=== PATIENT | male | born 1950 | race African-American/Black ===

== ENCOUNTER 2016-02-24 18:08 | Inpatient (IN) | payer MEDICAID ==
[~2016-02-24] VITALS: Ht 165.1 cm; Wt 54.0 kg
[2016-02-24] VITALS (7 sets, daily range): BP systolic 86–115; BP diastolic 53–71
[~2016-02-24 18:08] MED LIST: DILANTIN30 MG ORAL
[2016-02-24] MEDS ORDERED: Haloperidol 5mg/ml Inj IM ONE (18:15)
[2016-02-24] MEDS ORDERED: DiphenhydrAMINE 50mg/ml Inj IM ONE (18:15)
[2016-02-24 18:55] LABS: APPEARANCE,URINE CLEAR; KETONES,URINE NEGATIVE (NEGATIVE); LEUKOCYTE ESTERASE ,URINE NEGATIVE (NEGATIVE); NITRITE,URINE NEGATIVE (NEGATIVE); PH,URINE 5 (4.5-8.0); PROTEIN,URINE 2+ (NEGATIVE); UROBILINOGEN,URINE NORMAL MG/DL (0.0-1.0)
[2016-02-24 18:57] LABS: BASOPHILS % (AUTO) 0.5 % (0.0-2.0); EOSINOPHILS % (AUTO) 0.5 % (0.0-3.0); LYMPHOCYTES % (AUTO) 18.9 % (20.0-45.0); MEAN CORPUSCULAR HGB CONC 32.3 G/DL (32.0-36.0); MEAN CORPUSCULAR VOLUME 96 FL (80-99); MEAN PLATELET VOLUME 5.7 FL (6.5-10.1); MONOCYTES % (AUTO) 4.7 % (1.0-10.0); NEUTROPHILS % (AUTO) 75.4 % (45.0-75.0); PLATELET COUNT 232 K/UL (150-450); RED BLOOD COUNT 5.09 M/UL (4.70-6.10); RED CELL DISTRIBUTION WIDTH 11.8 % (11.6-14.8)
[2016-02-24 19:02] LABS: BACTERIA,URINE OCCASIONAL /HPF; RBC,URINE 0-2 /HPF (0 - 0); WBC,URINE 0 /HPF (0 - 0)
[2016-02-24 19:14] LABS: TROPONIN I < 0.30 ng/mL (<=0.30)
[2016-02-24 19:18] LABS: REFLEX LACTIC ACID YES OR NO YES
[2016-02-24 19:21] LABS: ALANINE AMINOTRANSFERASE 20 U/L (3-41); ALBUMIN/GLOBULIN RATIO 1.1 (1.0-2.7); ASPARTATE AMINO TRANSFERASE 30 U/L (5-40); CALCIUM 8.7 mg/dL (8.6-10.2); CARBON DIOXIDE 18 mEQ/L (20-30); CREATININE 0.8 mg/dL (0.7-1.2); GLOMERULAR FILTRATION RATE > 60 mL/min (>60); TOTAL PROTEIN 7.8 g/dL (6.6-8.7)
[2016-02-24 19:22] LABS: ACETAMINOPHEN < 10 ug/mL (10-30); ALCOHOL 210 mg/dL; ANION GAP 23 (5-15); CHLORIDE 100 mEQ/L (98-107); HEMOLYSIS 10; POTASSIUM 4.4 mEQ/L (3.4-4.9); SODIUM 141 mEQ/L (135-145)
[2016-02-24] MEDS ORDERED: metroNIDAZOLE 500mg 100 ML IVPB ONE (19:45)
[2016-02-24] MEDS ORDERED: NS 1000ml 1,900 ML IVLG ONE (19:45)
[2016-02-24] MEDS ORDERED: Zosyn 3.375gm inj ONE (19:47)
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
[2016-02-24] MEDS ORDERED: Vancomycin 1gm inj IVPB ONE (21:17)
[2016-02-24] MEDS ORDERED: D5W 250 ML ONE (21:18)
[2016-02-24] MEDS ORDERED: Dextrose 10%/.45 SOD CHL 1,000 ML IV SCH (22:00)
[2016-02-24] MEDS ORDERED: Phenytoin 250mg/5ml vial ONE (22:09)
[2016-02-24] MEDS ORDERED: NS 100 ML ONE (22:09)
[2016-02-24] MEDS ORDERED: D5 1/2NS 1,000 ML IV SCH (22:15)
[2016-02-24] MEDS ORDERED: TdaP Vaccine 0.5ml Syr IM ONE (22:30)
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
[2016-02-25] MEDS ORDERED: DuoNeb 0.5-3(2.5)mg/3ml neb HHN PRN
[2016-02-25] MEDS ORDERED: Miralax 17gm pkt ORAL PRN
[2016-02-25] MEDS ORDERED: Morphine Sulfate 2mg/ml Inj IVP PRN
[2016-02-25] MEDS ORDERED: Nitroglycerin Subl 0.4mg tab (Bottle Of 25) SL PRN
[2016-02-25 00:12] VITALS: BP 124/63
[2016-02-25] MEDS ORDERED: Cefepime 2gm ONE (01:56)
[2016-02-25] MEDS: D5 1/2NS 1,000 ML IV SCH ×2 (02:11→14:24)
[2016-02-25 04:33] VITALS: BP 121/68
[2016-02-25 06:35] LABS: MEAN CORPUSCULAR HEMOGLOBIN 31.1 PG (27.0-31.0); MEAN CORPUSCULAR HGB CONC 33.3 G/DL (32.0-36.0); MEAN CORPUSCULAR VOLUME 93 FL (80-99); MEAN PLATELET VOLUME 5.3 FL (6.5-10.1); PLATELET COUNT 183 K/UL (150-450); RED BLOOD COUNT 4.45 M/UL (4.70-6.10); RED CELL DISTRIBUTION WIDTH 11.7 % (11.6-14.8); WHITE BLOOD COUNT 12.1 K/UL (4.8-10.8)
[2016-02-25 07:05] LABS: ALANINE AMINOTRANSFERASE 22 U/L (3-41); ALBUMIN/GLOBULIN RATIO 0.9 (1.0-2.7); ANION GAP 13 (5-15); ASPARTATE AMINO TRANSFERASE 45 U/L (5-40); CALCIUM 8.2 mg/dL (8.6-10.2); CARBON DIOXIDE 21 mEQ/L (20-30); CHLORIDE 109 mEQ/L (98-107); CREATININE 0.8 mg/dL (0.7-1.2); GLOMERULAR FILTRATION RATE > 60 mL/min (>60); HEMOLYSIS 2; POTASSIUM 4.1 mEQ/L (3.4-4.9); SODIUM 143 mEQ/L (135-145); TOTAL PROTEIN 6.5 g/dL (6.6-8.7)
--- NOTE | 2016-02-25 07:46 | Consultation ---
Consult Note Consult Note ID CONSULT: Dinora# [id number] Assessment/Plan ASSESSMENT: 65 y/o male with: // Leukocytosis r/o infection vs reactive - afebrile, cultures pending. [place] well prior to event, no localizing s/sx infection - UA benign, CXR, CT head pending // Periodontal disease // Lactic acidosis - improved // Acute encephalopathy, m/l multifactorial r/o septic, CVA, seizure - improved , pt cannot recall events. CT head pending - positive: EtOH, marijuana, CPK - negative: ASA, tylenol - h/o seizures with subtherapeutic dilantin - h/o CVA // Elevated LFTs, mild // EtOH intoxication // NKDA // Full Code PLAN: - continue empiric IV vancomycin, cefepime d# 1 for now pending cultures, imaging. Likely de-escalate soon - f/u cultures - f/u CT head - f/u CXR - monitor CBC, temperatures - monitor BMP - withdrawal, seizure precautions Thanks! Will follow CESIA GREENFIELD Feb 25, 2016 07:46
[2016-02-25 08:20] VITALS: BP 127/67
[2016-02-25 08:39] LABS: BAND NEUTROPHILS % (MANUAL) 2 % (0-8); LYMPHOCYTES % (MANUAL) 5 % (20-45); NEUTROPHILS % (MANUAL) 90 % (45-75); TOTAL CELLS COUNTED 100
[2016-02-25 08:40] LABS: BASOPHILS % (MANUAL) 0 % (0-2); EOSINOPHILS % (MANUAL) 0 % (0-3); HYPOCHROMASIA 1+; PLATELET ESTIMATE ADEQUATE; PLATELET MORPHOLOGY NORMAL
--- NOTE | 2016-02-25 08:53 | Diagnostic Imaging Report ---
Indications: Altered level of consciousness Technique: Spiral acquisitions obtained through the brain. Angled axial and coronal 5 x 5 mm slices were reconstructed. Total dose length product 1376 mGycm. CTDI vol(s) 70 mGy Comparison: None Findings: There is a large area of encephalomalacia involving much of the left parietal lobe, portions of the posterior left frontal lobe and anterior left temporal lobe, and a significant proportion of the left basal ganglia region. There is ex vacuo dilatation of the body and temporal horn of the left lateral ventricle. There is also leftward midline shift which is presumably and extra-axial none. No acute intracranial hemorrhage or edema. No mass effect or midline shift. Otherwise normal summers-white differentiation. There is slight chronic appearing deformity of the nasal bone the visualized orbits and sinuses are unremarkable. 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 Rolle The CT scanner at [facility] is accredited by the [employer] and the scans are performed using protocols designed to limit radiation exposure to as low as reasonably achievable to attain images of sufficient resolution adequate for diagnostic evaluation.
[2016-02-25] MEDS: Heparin 5000 units/ml inj SUBQ SCH ×2 (09:02→20:14)
[2016-02-25 12:18] VITALS: BP 124/63
--- NOTE | 2016-02-25 15:10 | Internal Med Progress Note ---
Subjective Date of Service: Feb 25, 2016 Physician Name CoradoLien spaulding Attending Physician Nasra Duong Current Medications Medications (Trade) Dose Ordered Sig/Chung Route PRN Reason Start Time Stop Time Status Last Admin Dose Admin Acetaminophen (Tylenol) 650 mg Q4H PRN ORAL fever 02/25/16 00:00 03/26/16 00:00 02/25/16 07:02 Albuterol/ Ipratropium 3 ml 3 ml Q4H PRN HHN Shortness of Breath 02/25/16 00:00 03/01/16 00:00 Cefepime HCl 2 gm/ Dextrose 100 ml @ 100 mls/hr Q12H IV 02/25/16 02:00 03/03/16 01:59 02/25/16 14:24 Dextrose/Sodium Chloride (D5 0.45% NS) 1,000 ml @ 75 mls/hr [id number] IV 02/25/16 00:00 03/26/16 00:00 02/25/16 14:24 Heparin Sodium (Porcine) (Heparin 5000 units/ml) 5,000 units EVERY 12 HOURS SUBQ 02/25/16 09:00 03/26/16 08:59 02/25/16 09:02 Morphine Sulfate (Morphine Sulfate) 2 mg Q4H PRN IVP Moderate Pain (Pain Scale 4-6) 02/25/16 00:00 03/03/16 00:00 Nitroglycerin 0.4 mg 0.4 mg Q5M PRN SL Prn Chest Pain 02/25/16 00:00 03/26/16 00:00 Ondansetron HCl (Zofran) 4 mg Q6H PRN IVP Nausea & Vomiting 02/25/16 00:00 03/26/16 00:00 Polyethylene Glycol (Miralax) 17 gm DAILYPRN PRN ORAL Constipation 02/25/16 00:00 03/26/16 00:00 Temazepam (Restoril) 15 mg HSPRN PRN ORAL Insomnia 02/25/16 00:00 03/03/16 00:00 Vancomycin HCl/ Dextrose (Vancomycin/D5W 250ml) 250 ml @ 167 mls/hr Q12H IVPB 02/25/16 09:00 03/01/16 08:59 02/25/16 09:01 Allergies: Coded Allergies: No Known Allergies (Unverified , 05/10/14) ROS Limited/Unobtainable: Yes Subjective Cover for Int Rakesh-Dr Duong Objective Last Vital Signs Date Time Temp Pulse Resp B/P Pulse Ox O2 Delivery O2 Flow Rate FiO2 02/25/16 12:18 97.2 69 20 124/63 97 Room Air General Appearance: WD/WN, no apparent distress EENT: PERRL/EOMI, normal ENT inspection Neck: non-tender, normal alignment, supple, normal inspection Cardiovascular: normal peripheral pulses, normal rate, regular rhythm, no gallop/murmur, no JVD Respiratory/Chest: chest wall non-tender, lungs clear, normal breath sounds, no respiratory distress, no accessory muscle use Abdomen: normal bowel sounds, non tender, soft, no organomegaly, no mass 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: 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 II-XII grossly normal Skin: normal pigmentation, warm/dry Laboratory Tests Test 02/24/16 18:08 02/24/16 18:22 02/24/16 19:30 02/25/16 05:25 White Blood Count 15.0 K/UL (4.8-10.8) H 12.1 K/UL (4.8-10.8) H Red Blood Count 5.09 M/UL (4.70-6.10) 4.45 M/UL (4.70-6.10) L Hemoglobin 15.8 G/DL (14.2-18.0) 13.8 G/DL (14.2-18.0) L Hematocrit 48.9 % (42.0-52.0) 41.5 % (42.0-52.0) L Mean Corpuscular Volume 96 FL (80-99) 93 FL (80-99) Mean Corpuscular Hemoglobin 31.0 PG (27.0-31.0) 31.1 PG (27.0-31.0) H Mean Corpuscular Hemoglobin Concent 32.3 G/DL (32.0-36.0) 33.3 G/DL (32.0-36.0) Red Cell Distribution Width 11.8 % (11.6-14.8) 11.7 % (11.6-14.8) Platelet Count 232 K/UL (150-450) 183 K/UL (150-450) Mean Platelet Volume 5.7 FL (6.5-10.1) L 5.3 FL (6.5-10.1) L Neutrophils (%) (Auto) 75.4 % (45.0-75.0) H % (45.0-75.0) Lymphocytes (%) (Auto) 18.9 % (20.0-45.0) L % (20.0-45.0) Monocytes (%) (Auto) 4.7 % (1.0-10.0) % (1.0-10.0) Eosinophils (%) (Auto) 0.5 % (0.0-3.0) % (0.0-3.0) Basophils (%) (Auto) 0.5 % (0.0-2.0) % (0.0-2.0) Sodium Level 141 mEQ/L (135-145) 143 mEQ/L (135-145) Potassium Level 4.4 mEQ/L (3.4-4.9) 4.1 mEQ/L (3.4-4.9) Chloride Level 100 mEQ/L (98-107) 109 mEQ/L (98-107) H Carbon Dioxide Level 18 mEQ/L (20-30) L 21 mEQ/L (20-30) Anion Gap 23 (5-15) H 13 (5-15) Blood Urea Nitrogen 10 mg/dL (7-23) 10 mg/dL (7-23) Creatinine 0.8 mg/dL (0.7-1.2) 0.8 mg/dL (0.7-1.2) Estimat Glomerular Filtration Rate > 60 mL/min (>60) > 60 mL/min (>60) Glucose Level 179 mg/dL (74-106) H 84 mg/dL (74-106) Lactic Acid Level 6.70 mmol/L (0.66-2.22) H 3.70 mmol/L (0.66-2.22) H Calcium Level 8.7 mg/dL (8.6-10.2) 8.2 mg/dL (8.6-10.2) L Total Bilirubin < 0.2 mg/dL (0.0-1.2) 0.4 mg/dL (0.0-1.2) Aspartate Amino Transf (AST/SGOT) 30 U/L (5-40) 45 U/L (5-40) H Alanine Aminotransferase (ALT/SGPT) 20 U/L (3-41) 22 U/L (3-41) Alkaline Phosphatase 162 U/L (40-129) H 141 U/L (40-129) H Ammonia 56 umol/L (16-60) Total Creatine Kinase 264 U/L (38-174) H Troponin I < 0.30 ng/mL (<=0.30) Total Protein 7.8 g/dL (6.6-8.7) 6.5 g/dL (6.6-8.7) L Albumin 4.2 g/dL (3.5-5.2) 3.2 g/dL (3.5-5.2) L Globulin 3.6 g/dL 3.3 g/dL Albumin/Globulin Ratio 1.1 (1.0-2.7) 0.9 (1.0-2.7) L Salicylates Level < 1 mg/dL (10-30) L Acetaminophen Level < 10 ug/mL (10-30) L Phenytoin (Dilantin) Level 4.2 ug/mL (10-20) L Serum Alcohol 210 mg/dL Urine Color Pale yellow Urine Appearance Clear Urine pH 5 (4.5-8.0) Urine Specific [place] 1.010 (1.005-1.035) Urine Protein 2+ (NEGATIVE) H Urine Glucose (UA) 3+ (NEGATIVE) H Urine Ketones Negative (NEGATIVE) Urine Occult Blood 4+ (NEGATIVE) H Urine Nitrite Negative (NEGATIVE) Urine Bilirubin Negative (NEGATIVE) Urine Urobilinogen Normal MG/DL (0.0-1.0) Urine Leukocyte Esterase Negative (NEGATIVE) Urine RBC 0-2 /HPF (0 - 0) H Urine WBC 0 /HPF (0 - 0) Urine Squamous Epithelial Cells None /LPF (NONE/OCC) Urine Bacteria Occasional /HPF (NONE) Urine Opiates Screen Negative (NEGATIVE) Urine Barbiturates Screen Negative (NEGATIVE) Phencyclidine (PCP) Screen Negative (NEGATIVE) Urine Amphetamines Screen Negative (NEGATIVE) Urine Benzodiazepines Screen Negative (NEGATIVE) Urine Cocaine Screen Negative (NEGATIVE) Urine Marijuana (THC) Screen Positive (NEGATIVE) H Differential Total Cells Counted 100 Neutrophils % (Manual) 90 % (45-75) H Lymphocytes % (Manual) 5 % (20-45) L Monocytes % (Manual) 3 % (1-10) Eosinophils % (Manual) 0 % (0-3) Basophils % (Manual) 0 % (0-2) Band Neutrophils 2 % (0-8) Platelet Estimate Adequate Platelet Morphology Normal Hypochromasia 1+ Intake and Output 02/24/16 02/25/16 19:00 07:00 Intake Total 3702 ml Output Total 3600 ml Balance 102 ml IV Total 3702 ml Output Urine Total 3600 ml Assessment/Plan Problem List: (1) Alcohol abuse (2) Alcohol intoxication (3) Encephalopathy, metabolic Assessment & Plan: Due to alcohol intoxication (4) Altered mental status (5) Leukocytosis Assessment & Plan: See ID note. Cont vanco and cefepime (6) Cerebral vascular disease (7) Hemiparesis, right (8) Seizure disorder Assessment & Plan: ? alcohol withdrawl? (9) Hypoglycemia Status: not improved LIEN CORADO Feb 25, 2016 15:10
[2016-02-25 16:00] VITALS: BP 128/89
[2016-02-25 20:00] VITALS: BP 122/68
[2016-02-26] VITALS: BP 114/71
--- NOTE | 2016-02-26 00:27 | Consultation ---
DATE OF CONSULTATION: 02/25/2016 INFECTIOUS DISEASE CONSULTATION: CONSULTING PHYSICIAN: Rahul Mishra M.D. REQUESTING PHYSICIAN: Nasra Duong M.D. REASON FOR CONSULTATION: Leukocytosis. HISTORY OF PRESENT ILLNESS: This is a 65-year-old male with a history of seizure disorder and stroke, admitted on 02/24/2016 with altered mental status. He was hypoglycemic. The patient cannot recall any events. He has evidence of mild leukocytosis, which improved, lactic acidosis, elevated CPK, and urine drug screen positive for alcohol and marijuana. His Dilantin level is subtherapeutic. Cardenas cultures are pending. CT of the head and chest x-ray are pending. He has been started on empiric cefepime and vancomycin and ID now consulted to assist in management. PAST MEDICAL HISTORY: 1. History of stroke. 2. Seizure disorder. 3. Hypertension. PAST SURGICAL HISTORY: None. MEDICATIONS: 1. Vancomycin. 2. Cefepime. 3. Subcutaneous heparin. ALLERGIES: No known drug allergies. SOCIAL HISTORY: History of alcohol and marijuana abuse. FAMILY HISTORY: Noncontributory. REVIEW OF SYSTEMS: He reports feeling well prior to admission. Denied fever, chills, sweats, cough, congestion, runny nose, sore throat, chest pain, abdominal pain, nausea, vomiting, diarrhea, or dysuria. Ten systems reviewed. All pertinent positives and negatives noted. PHYSICAL EXAMINATION: VITAL SIGNS: Maximum temperature is 99.4 degrees, blood pressure 121/68, heart rate in the 80s, respiratory rate 22, and saturating 94% on room air. GENERAL: No apparent distress. Nontoxic appearing. HEENT: Poor dentition. CARDIOVASCULAR: Regular rate and rhythm. No murmurs. PULMONARY: Clear to auscultation bilaterally. ABDOMEN: Bowel sounds are present. Soft, nondistended, and nontender. EXTREMITIES: Right upper extremity, chronically contracted due to injury. LABORATORY DATA: White blood cell count is 12.1, decreased from 15, hemoglobin 13.8, and platelets 183,000. Sodium is 143, potassium 4.1, chloride 109, bicarbonate 21, BUN 10, and creatinine 0.8. Lactic acid is 6.7, decreased to 3.7. AST is 45, ALT 22, and alkaline phosphatase 141. Total bilirubin is 0.4. Albumin is 3.2. Troponin is negative x1. Creatine kinase is 264. Urine drug screen is positive for marijuana. Alcohol level is positive. Dilantin is subtherapeutic. Aspirin and Tylenol are negative. MICROBIOLOGY: 1. 02/25/2016, sputum culture is pending. 2. 02/25/2016, urine culture is pending. 3. 02/24/2016, blood culture is pending. IMAGIN. 02/24/2016, CT of the head pending. 2. 02/24/2016, chest x-ray pending. ASSESSMENT: 1. Leukocytosis, rule out infection versus reactive. The patient is afebrile and cultures are pending. He has no localizing signs or symptoms of infection. Urinalysis is benign. Chest x-ray and CT of the head are pending. 2. Periodontal disease. 3. Lactic acidosis, improved. 4. Acute encephalopathy, most likely multifactorial, rule out septic, stroke, or seizure. The patient is now more alert and cannot recall surrounding events. A CT of the head is pending. Alcohol and marijuana on board. CPK is elevated. Negative aspirin and Tylenol levels. He has known seizure disorder with subtherapeutic Dilantin and history of stroke. 5. Elevated liver function tests, mild. 6. Alcohol intoxication. 7. No known drug allergies. 8. Full Code. PLAN: 1. Continue empiric IV vancomycin and cefepime, day #1 for now pending cultures and imaging, likely deescalation. 2. Follow up cultures. 3. Follow up CT of the head. 4. Follow up chest x-ray. 5. Monitor CBC and temperatures. 6. Monitor BMP. 7. and seizure precautions. Thank you. We will follow. Rahul Mishra M.D. DR: Gino JOB#: [id number] CC: Nasra Duong M.D.; Fax#: [phone] Mandujano M.D; Fax#: [phone]
[2016-02-26] MEDS: D5 1/2NS 1,000 ML IV SCH (02:15)
[2016-02-26 08:00] VITALS: BP 118/77
[2016-02-26 08:23] LABS: BASOPHILS % (AUTO) 0.7 % (0.0-2.0); EOSINOPHILS % (AUTO) 1.8 % (0.0-3.0); LYMPHOCYTES % (AUTO) 25.1 % (20.0-45.0); MEAN CORPUSCULAR HEMOGLOBIN 31.2 PG (27.0-31.0); MEAN CORPUSCULAR HGB CONC 33.5 G/DL (32.0-36.0); MEAN CORPUSCULAR VOLUME 93 FL (80-99); MEAN PLATELET VOLUME 6.3 FL (6.5-10.1); MONOCYTES % (AUTO) 8.7 % (1.0-10.0); NEUTROPHILS % (AUTO) 63.7 % (45.0-75.0); PLATELET COUNT 158 K/UL (150-450); RED BLOOD COUNT 4.71 M/UL (4.70-6.10); RED CELL DISTRIBUTION WIDTH 11.5 % (11.6-14.8); WHITE BLOOD COUNT 7.9 K/UL (4.8-10.8)
--- NOTE | 2016-02-26 08:32 | Infectious Diseases Prog Note ---
Assessment/Plan Assessment/Plan ASSESSMENT: 65 y/o male with: // Leukocytosis r/o infection vs reactive - resolved, afebrile, cultures NGTD. Udall well prior to event, no localizing s/sx infection - UA benign, CXR, CT head pending // Periodontal disease // Lactic acidosis - improved // Acute encephalopathy, m/l multifactorial r/o septic, CVA, seizure - improved , pt cannot recall events. - CT Head: Negative for acute intracranial bleed or mass effect. Evidence of old large left middle cerebral artery distribution infarct, also involving a significant portion of the left basal ganglia - positive: EtOH, marijuana, CPK - negative: ASA, tylenol - h/o seizures with subtherapeutic dilantin - h/o CVA // Elevated LFTs, mild // EtOH intoxication // NKDA // Full Code PLAN: - DC empiric IV vancomycin, cefepime d# 2, monitor pt off of ABX - f/u cultures - f/u CXR - monitor CBC, temperatures - monitor BMP - withdrawal, seizure precautions Subjective Allergies: Coded Allergies: No Known Allergies (Unverified , 05/10/14) Subjective remains afebrile. comfortable leukocytosis resolved Objective Vital Signs Last 24 Hour Vital Signs Date Time Temp Pulse Resp B/P Pulse Ox O2 Delivery O2 Flow Rate FiO2 02/26/16 04:00 57 02/26/16 00:00 98.2 64 16 114/71 96 Room Air 02/26/16 00:00 56 02/25/16 20:00 97.5 67 20 122/68 98 Room Air 02/25/16 20:00 66 02/25/16 16:00 96.6 63 22 128/89 98 Room Air 02/25/16 16:00 71 02/25/16 12:18 97.2 69 20 124/63 97 Room Air 02/25/16 12:00 57 Height (Feet): 5 Height (Inches): 5.00 Weight (Pounds): 119 General Appearance: no acute distress Respiratory/Chest: no respiratory distress Cardiovascular: normal rate, regular rhythm Abdomen: normal bowel sounds, soft, non tender, non distended Microbiology Date/Time Source Procedure Growth Status 02/24/16 18:23 Blood Blood Culture - Preliminary NO GROWTH AFTER 24 HOURS Resulted 02/24/16 18:08 Blood Blood Culture - Preliminary NO GROWTH AFTER 24 HOURS Resulted Laboratory Tests Test 02/25/16 22:15 02/26/16 08:00 Phenytoin (Dilantin) Level 3.1 ug/mL (10-20) L White Blood Count 7.9 K/UL (4.8-10.8) Red Blood Count 4.71 M/UL (4.70-6.10) Hemoglobin 14.7 G/DL (14.2-18.0) Hematocrit 43.9 % (42.0-52.0) Mean Corpuscular Volume 93 FL (80-99) Mean Corpuscular Hemoglobin 31.2 PG (27.0-31.0) H Mean Corpuscular Hemoglobin Concent 33.5 G/DL (32.0-36.0) Red Cell Distribution Width 11.5 % (11.6-14.8) L Platelet Count 158 K/UL (150-450) Mean Platelet Volume 6.3 FL (6.5-10.1) L Neutrophils (%) (Auto) 63.7 % (45.0-75.0) Lymphocytes (%) (Auto) 25.1 % (20.0-45.0) Monocytes (%) (Auto) 8.7 % (1.0-10.0) Eosinophils (%) (Auto) 1.8 % (0.0-3.0) Basophils (%) (Auto) 0.7 % (0.0-2.0) Sodium Level Pending Potassium Level Pending Chloride Level Pending Carbon Dioxide Level Pending Blood Urea Nitrogen Pending Creatinine Pending Estimat Glomerular Filtration Rate Pending Glucose Level Pending Calcium Level Pending Vancomycin Level Trough Pending Current Medications Medications (Trade) Dose Ordered Sig/Chung Route PRN Reason Start Time Stop Time Status Last Admin Dose Admin Acetaminophen (Tylenol) 650 mg Q4H PRN ORAL fever 02/25/16 00:00 03/26/16 00:00 02/25/16 07:02 Albuterol/ Ipratropium 3 ml 3 ml Q4H PRN HHN Shortness of Breath 02/25/16 00:00 03/01/16 00:00 Cefepime HCl 2 gm/ Dextrose 100 ml @ 100 mls/hr Q12H IV 02/25/16 02:00 03/03/16 01:59 02/26/16 02:15 Dextrose/Sodium Chloride (D5 0.45% NS) 1,000 ml @ 75 mls/hr [id number] IV 02/25/16 00:00 03/26/16 00:00 02/26/16 02:15 Heparin Sodium (Porcine) (Heparin 5000 units/ml) 5,000 units EVERY 12 HOURS SUBQ 02/25/16 09:00 03/26/16 08:59 02/25/16 20:14 Morphine Sulfate (Morphine Sulfate) 2 mg Q4H PRN IVP Moderate Pain (Pain Scale 4-6) 02/25/16 00:00 03/03/16 00:00 Nitroglycerin 0.4 mg 0.4 mg Q5M PRN SL Prn Chest Pain 02/25/16 00:00 03/26/16 00:00 Ondansetron HCl (Zofran) 4 mg Q6H PRN IVP Nausea & Vomiting 02/25/16 00:00 03/26/16 00:00 Polyethylene Glycol (Miralax) 17 gm DAILYPRN PRN ORAL Constipation 02/25/16 00:00 03/26/16 00:00 Temazepam (Restoril) 15 mg HSPRN PRN ORAL Insomnia 02/25/16 00:00 03/03/16 00:00 Vancomycin HCl/ Dextrose (Vancomycin/D5W 250ml) 250 ml @ 167 mls/hr Q12H IVPB 02/25/16 09:00 03/01/16 08:59 02/25/16 20:13 CESIA GREENFIELD Feb 26, 2016 08:32
[2016-02-26 08:40] LABS: ANION GAP 17 (5-15); CALCIUM 8.7 mg/dL (8.6-10.2); CARBON DIOXIDE 20 mEQ/L (20-30); CHLORIDE 96 mEQ/L (98-107); CREATININE 0.8 mg/dL (0.7-1.2); GLOMERULAR FILTRATION RATE > 60 mL/min (>60); HEMOLYSIS 8; SODIUM 133 mEQ/L (135-145)
[2016-02-26] MEDS: Heparin 5000 units/ml inj SUBQ SCH (09:04)
--- NOTE | 2016-02-26 10:23 | Diagnostic Imaging Report ---
Indication: DYSPNEA Technique: One view of the chest Comparison: Findings: Lungs are hyperinflated, as in COPD. Heart size is normal. Aorta is tortuous and calcified. Impression: COPD changes. No acute process
[2016-02-26 12:00] VITALS: BP 120/74
--- NOTE | 2016-02-26 13:50 | Pulmonology Progress Note ---
Assessment/Plan Problems: (1) Encephalopathy, metabolic (2) Hypoglycemia (3) Alcohol intoxication (4) Hemiparesis, right (5) Seizure disorder (6) Leukocytosis (7) Cerebral vascular disease Assessment/Plan improving wants to be discharged BS is better ID recommends to watch off antibiotics Subjective ROS Limited/Unobtainable: No Interval Events: doing better, asymptoamtic Allergies: Coded Allergies: No Known Allergies (Unverified , 05/10/14) Objective Last 24 Hour Vital Signs Date Time Temp Pulse Resp B/P Pulse Ox O2 Delivery O2 Flow Rate FiO2 02/26/16 11:02 49 02/26/16 08:00 18 118/77 96 Room Air 02/26/16 04:00 57 02/26/16 00:00 98.2 64 16 114/71 96 Room Air 02/26/16 00:00 56 02/25/16 20:00 97.5 67 20 122/68 98 Room Air 02/25/16 20:00 66 02/25/16 16:00 96.6 63 22 128/89 98 Room Air 02/25/16 16:00 71 Intake and Output 02/25/16 02/26/16 19:00 07:00 Intake Total 1257 ml 919 ml Output Total 600 ml 2400 ml Balance 657 ml -1481 ml Intake Oral 240 ml 360 ml IV Total 1017 ml 559 ml Output Urine Total 600 ml 2400 ml General Appearance: WD/WN HEENT: normocephalic, anicteric Respiratory/Chest: chest wall non-tender, lungs clear Cardiovascular: normal peripheral pulses, normal rate Abdomen: normal bowel sounds, soft, non tender Skin: no rash Neurologic/Psychiatric: pattern checker II-XII grossly normal Lymphatic: no neck adenopathy Microbiology Date/Time Source Procedure Growth Status 02/24/16 18:23 Blood Blood Culture - Preliminary Resulted 02/24/16 18:08 Blood Blood Culture - Preliminary NO GROWTH AFTER 24 HOURS Resulted 02/25/16 03:00 Indwelling Cath Urine Culture - Preliminary NO GROWTH AFTER 24 HOURS Resulted Laboratory Tests 02/25/16 22:15: Phenytoin (Dilantin) Level 3.1L 02/26/16 08:00: White Blood Count 7.9, Red Blood Count 4.71, Hemoglobin 14.7, Hematocrit 43.9, Mean Corpuscular Volume 93, Mean Corpuscular Hemoglobin 31.2H, Mean Corpuscular Hemoglobin Concent 33.5, Red Cell Distribution Width 11.5L, Platelet Count 158, Mean Platelet Volume 6.3L, Neutrophils (%) (Auto) 63.7, Lymphocytes (%) (Auto) 25.1, Monocytes (%) (Auto) 8.7, Eosinophils (%) (Auto) 1.8, Basophils (%) (Auto ) 0.7, Sodium Level 133L, Potassium Level 4.0, Chloride Level 96L, Carbon Dioxide Level 20, Anion Gap 17H, Blood Urea Nitrogen 8, Creatinine 0.8, Estimat Glomerular Filtration Rate > 60, Glucose Level 160H, Calcium Level 8.7, Vancomycin Level Trough 8.4 Current Medications Medications (Trade) Dose Ordered Sig/Chung Route PRN Reason Start Time Stop Time Status Last Admin Dose Admin Acetaminophen (Tylenol) 650 mg Q4H PRN ORAL fever 02/25/16 00:00 03/26/16 00:00 02/25/16 07:02 Albuterol/ Ipratropium 3 ml 3 ml Q4H PRN HHN Shortness of Breath 02/25/16 00:00 03/01/16 00:00 Cefepime HCl 2 gm/ Dextrose 100 ml @ 100 mls/hr Q12H IV 02/25/16 02:00 02/26/16 23:59 02/26/16 02:15 Dextrose/Sodium Chloride (D5 0.45% NS) 1,000 ml @ 75 mls/hr [id number] IV 02/25/16 00:00 03/26/16 00:00 02/26/16 02:15 Heparin Sodium (Porcine) (Heparin 5000 units/ml) 5,000 units EVERY 12 HOURS SUBQ 02/25/16 09:00 03/26/16 08:59 02/26/16 09:04 Morphine Sulfate (Morphine Sulfate) 2 mg Q4H PRN IVP Moderate Pain (Pain Scale 4-6) 02/25/16 00:00 03/03/16 00:00 Nitroglycerin 0.4 mg 0.4 mg Q5M PRN SL Prn Chest Pain 02/25/16 00:00 03/26/16 00:00 Ondansetron HCl (Zofran) 4 mg Q6H PRN IVP Nausea & Vomiting 02/25/16 00:00 03/26/16 00:00 Polyethylene Glycol (Miralax) 17 gm DAILYPRN PRN ORAL Constipation 02/25/16 00:00 03/26/16 00:00 Temazepam (Restoril) 15 mg HSPRN PRN ORAL Insomnia 02/25/16 00:00 03/03/16 00:00 Vancomycin HCl (Vanco rx to dose) 1 ea DAILY PRN MISC PER RX PROTOCOL 02/26/16 12:15 03/27/16 12:14 Vancomycin HCl/ Dextrose (Vancomycin/D5W 250ml) 250 ml @ 167 mls/hr Q12H IVPB 02/25/16 09:00 02/26/16 23:59 02/26/16 09:04 THAO ANNE Feb 26, 2016 13:50
[2016-02-26] MEDS ORDERED: D5 1/2NS 1000ml IV ONE (16:35)
[2016-02-26] MEDS ORDERED: Tubing IV Secondary IV ONE (16:35)
[2016-02-26] MEDS ORDERED: NS 275ml ONE (16:35)
--- NOTE | 2016-02-27 11:01 | Cardiology Report ---
APPROVED REPORT EKG Measurement Heart [id number] [place] [id number] Normal sinus rhythm Possible Left atrial enlargement Left ventricular hypertrophy with repolarization abnormality Abnormal ECG
--- NOTE | 2016-02-28 13:12 | Discharge Summary ---
Discharge Summary Hospital Course Date of Admission Feb 24, 2016 at 20:21 Date of Discharge Feb 26, 2016 at 16:36 Admitting Diagnosis SEPSIS HPI Shakeel Arellano is a 65 year old male who was admitted on Feb 24, 2016 at 20:21 for Sepsis Hospital Course dc summary #[id number] Discharge Condition Upon Discharge: improving, stable Discharge Disposition Patient was discharged to Home (01) Discharge Diagnoses: Sanchez (Kirbyemilie),Jessica SALCEDO Feb 28, 2016 13:12
--- NOTE | 2016-02-29 00:07 | Discharge Summary 2 SIG ---
DATE OF ADMISSION: 02/24/2016 DATE OF DISCHARGE: 02/26/2016 CONDITION: Stable. REASON FOR HOSPITALIZATION : 65-year-old male was presented with altered mental status and low blood sugar as well as low blood pressure. The patient required intravenous hydration. Initially in the field, he was given IV bolus.and ample of D50. He had evidence of alcohol intoxication at that time. Alcohol level was 210. Urine toxicology screen was positive for marijuana. Troponin was negative. Ammonia - 56. The patient was altered, presented with leukocytosis of 15.0. Lactic acid was 6.7. The patient was afebrile. ADMITTING DIAGNOSES: 1. Sepsis. 2. Toxic metabolic encephalopathy. 3. Hypoglycemia. 4. Alcohol intoxication. HOSPITAL COURSE: The patient was admitted to telemetry floor, started on empiric antibiotic after septic workup initiated in ER. CT head revealed no acute intracranial pathology, bleeding, or mass effect, but indicated old large left middle cerebral artery distribution infarct involving a significant portion of the left basal ganglia. Chest x-ray revealed chronic obstructive pulmonary disease changes, but no acute cardiopulmonary disease. No evidence of chronic obstructive pulmonary disease exacerbation at that time. The patient with known history of seizure disorder. Dilantin level was low. The patient was given loading dose of Dilantin. Seizure precautions were maintained. No evidence of seizure activity while in the hospital. Blood sugar was stable as well as the blood pressure. Initially on IV hydration with thiamine abd folate.. ID consult was requested. Urine culture and sputum culture were negative. Blood culture 1/4 positive for Staph coag-negative, likely contaminant as per ID. The patient was afebrile, leukocytosis likely reactive, antibiotics discontinued. ID recommended to monitor the patient off antibiotics . The patient was stable for discharge. Leukocytosis resolved. Mental status was back to baseline. The patient was counseled on avoidance of alcohol. LFT stable, mild elevation likely 2 to alcohol intoxication. DISCHARGE DIAGNOSES: 1. Leukocytosis- likely reactive. 2. Toxic metabolic encephalopathy, resolved. ( 2 to alcohol intoxication) 3. Seizure disorder. 4. Hypoglycemia, resolved. 5. Alcohol intoxication. 6. History of old left MCA cerebrovascular accident. 7. Chronic obstructive pulmonary disease, no evidence of exacerbation. 8. Mild transaminitis. DISCHARGE MEDICATIONS: see medications reconciliation list DISCHARGE INSTRUCTIONS: dc home, follow up with primary care provider, counsellors on abstinence from ETOH,. Nasra Duong M.D. I have been assigned to dictate discharge summary on this account and I was not involved in the patient's management. Jessica Bradford (Vanchtein) NDavid DR: ARIEL JOB#: [id number] CC: [email or web address]
--- NOTE | 2016-03-03 10:31 | Diagnostic Imaging Report ---
Indication: Cough Technique: One view of the chest Comparison: none Findings: Patient's right hand overlies the right hemithorax, may obscure pathology. Lungs and pleural spaces are otherwise clear. The heart size is normal. Aorta is tortuous and ectatic. Impression: No definite acute process. Findings as noted
== END 2016-02-26 16:36 | disposition home or self-care (01) | DRG 52 ==
LOC: EDBD 18:08 → EMR 18:26 → 2E 20:21 → EDBEDREQ 21:41 → 2E 02-25 05:26
DX: G93.41 Metabolic encephalopathy (principal); I69.351 Hemiplegia and hemiparesis following cerebral infarction affecting right dominant side; D72.829 Elevated white blood cell count, unspecified; J44.9 Chronic obstructive pulmonary disease, unspecified; G40.909 Epilepsy, unspecified, not intractable, without status epilepticus; E16.2 Hypoglycemia, unspecified; F10.129 Alcohol abuse with intoxication, unspecified; K05.6 Periodontal disease, unspecified
CPT/HCPCS: 36415; 70450; 71010; 80048; 80053; 80185; 80202; 80300; 80329; 81003; 82140; 82550; 82962; 83605; 84484; 85007; 85025; 87040; 87070; 87086; 87181; 87205; 90471; 90715; 93005; J1165